=== PATIENT | male | born 1970 | race Caucasian/White ===

== ENCOUNTER 2017-08-07 08:38 | Emergency (ER) | payer OTHER ==
[~2017-08-07] VITALS: Ht 162.6 cm; Wt 71.3 kg
[2017-08-07 09:15] VITALS: Ht 162.6 cm; Wt 71.3 kg
[2017-08-07 11:54] VITALS: BP 110/70
== END 2017-08-07 11:54 | disposition home or self-care (01) ==
LOC: ED 08:38
DX: J20.9 Acute bronchitis, unspecified (principal); J45.909 Unspecified asthma, uncomplicated